=== PATIENT | female | born 1975 | race Caucasian/White ===

== ENCOUNTER → 2016-07-11 | Outpatient (CLI) | payer BC ==
[~2016-07-11] MED LIST: BCPILLS PO
--- NOTE | 2016-07-11 08:44 | DIAGNOSTIC IMAGING REPORT ---
ULTRASOUND OF THE PELVIS CLINICAL HISTORY: Heavy and irregular menses. COMPARISON STUDY: Pelvic ultrasound dated 02/26/2010. TECHNIQUE: Real-time, grayscale, and color flow sonography of the pelvis is performed both transabdominally and endovaginally. Images are reviewed in the transverse and longitudinal planes. FINDINGS: Uterus: The retroverted uterus is normal in size and echotexture, measuring 8.4 x 5.0 x 5.7 cm. Small nabothian cysts are incidentally noted in the cervix. Endometrium: There is fluid and nonvascular echogenic debris present within the endometrial canal. The endometrial stripe measures up to 3 mm Ovaries: The ovaries are normal in size and morphology. The right ovary measures 1.8 x 1.2 x 1.4 cm and the left ovary measures 1.6 x 1.1 x 1.7 cm. There are tiny ovarian follicles. Normal Doppler waveforms are shown within both ovaries. Pelvis: There is no free fluid in the cul-de-sac. No concerning adnexal lesion is seen. IMPRESSION: 1. No acute sonographic abnormality is identified in the pelvis. 2. There is fluid and complex nonvascular debris present within the endometrial canal. This nonspecific and may represent blood clots. Gynecologic assessment is recommended. A follow-up pelvic ultrasound in 3 months time is also recommended to document resolution. 3. The ovaries are normal in appearance. Electronically signed by: Jv Haley M.D. 07/11/2016 8:41 AM Dictated Date/Time: 07/11/2016 8:34 AM
== END | disposition home or self-care (01) ==
LOC: C.ULTR 07:51
PROVIDERS: ATTEND Family Medicine
DX: N92.0 Excessive and frequent menstruation with regular cycle (principal)

== ENCOUNTER → 2016-08-14 | Outpatient (CLI) | payer BC | END | disposition home or self-care (01) | LOC: C.PAPS 11:01 | PROVIDERS: ATTEND Physician Assistant | DX: Z01.419 Encounter for gynecological examination (general) (routine) without abnormal findings (principal) ==

== ENCOUNTER → 2017-06-23 | Outpatient (CLI) | payer OTHER ==
--- NOTE | 2017-06-23 09:51 | DIAGNOSTIC IMAGING REPORT ---
RIGHT ANKLE 3 VIEWS CLINICAL HISTORY: Right ankle pain. No reported history of trauma. FINDINGS: 3 views the right ankle are obtained. No prior studies are available for comparison at the time of dictation. The skeletal structures are well mineralized. No fracture is seen. The ankle mortise is intact. Pes planus is suggested. No joint effusion is identified. Mild soft tissue swelling is noted over the medial malleolus. IMPRESSION: Mild soft tissue swelling with no acute osseous abnormality identified. Electronically signed by: Jv Haley M.D. 06/23/2017 9:50 AM Dictated Date/Time: 06/23/2017 9:49 AM
== END | disposition home or self-care (01) ==
LOC: C.RAD1850 09:41
PROVIDERS: ATTEND Student in an Organized Health Care Education/Training Program
DX: M25.571 Pain in right ankle and joints of right foot (principal)

== ENCOUNTER 2020-06-25 04:11 | Observation (INO) ==
--- NOTE | 2020-06-25 04:18 | Emergency Department Note ---
History of Present Illness General Chief complaint: Ankle Pain Stated complaint: FALL HURT LEFT ANKLE Time Seen by Provider: 06/25/20 04:17 History of Present Illness Maximum Pain Intensity: 6 This is a 45-year-old female that presents to the emergency department via private vehicle with complaints of "fall, her left ankle". The patient notes that she had some drinks last night and states that she does not recall the events well but notes that she was in the bathroom, and fell on a dog toy causing injury to the left ankle. She denies striking the head or loss of consciousness. She notes isolated pain to that of the left lower extremity. This occurred around 9:30 PM this past evening. Current pain 08/30. Home Medications Medication Instructions Recorded Confirmed Type escitalopram oxalate 10 mg PO QAM 06/25/20 06/25/20 History lisinopril 10 mg PO QAM 06/25/20 06/25/20 History Allergies Allergy/AdvReac Type Severity Reaction Status Date / Time Sulfa (Sulfonamide Allergy Unknown HIVES Unverified 06/25/20 07:07 Antibiotics) Past Med/Surg History Medical History No pertinent past medical history Surgical History No pertinent past surgical history Social History Smoking Status: Never smoker Preferred Language: Belarusian Feels Safe at Home: Yes Review of Systems A total of 6 systems reviewed and were otherwise negative Physical Exam Vital Signs Vital Signs - 24 hr 06/25/20 04:15 06/25/20 05:25 06/25/20 07:25 Temperature 36.1 C L Temperature Source Temporal Artery Scan Pulse Rate 104 H Pulse Rate [Finger] 78 82 Respiratory Rate 16 16 18 Respiratory Depth Normal Blood Pressure 122/54 L Blood Pressure [Right Arm] 101/66 110/74 Blood Pressure Mean 76 Blood Pressure Mean [Right Arm] 77 86 Blood Pressure Position [Right Arm] Semi-fowlers Pulse Oximetry 98 98 95 Oxygen Delivery Method Room Air Room Air Sepsis Recent Fever Within 48 Hours No Sepsis New/Unexplained Change in Mental Status No Sepsis Action Taken by Nursing No Action Required VITAL SIGNS - Vital signs and nursing notes were reviewed. Stable and afebrile. GENERAL -45-year-old female appearing her stated age who is in no acute distress. Communicates well with provider and answers questions appropriately. SKIN - Without rashes. There is edema and bruising to the left ankle. There is no obvious deformity or evidence of open fracture. No meningeal or petechial rash. HEAD - NC/AT. EXTREMITIES - No clubbing or peripheral cyanosis. +5/5 strength noted in UE/LE bilaterally. There is left lower extremity tenderness to palpation in the left ankle region. No evidence of open fracture. Left dorsalis pedis pulse below normal limits. Decreased left ankle range of motion secondary to pain. Patient cannot bear weight. NEUROLOGIC - Cranial nerves II through XII grossly intact. Sensory intact to light touch throughout. PSYCH - A&O, and cooperates fully with examiner. Pt is very pleasant and interacts well with examiner. Course Administered Medications Discontinued Medications Hydrocodone Bitart/Acetaminophen (Hydrocodone/Acetamophen 5/325mg Tab) 1 tab PO NOW STA Stop: 06/25/20 04:25 Last Admin: 06/25/20 04:38 Dose: 1 tab Documented by: [id number] Medical Decision Making Laboratory Data Result diagrams: 06/25/20 07:14 06/25/20 07:14 Lab Results 06/25/20 06/25/20 06/25/20 Range/Units 07:14 07:14 07:18 WBC 8.97 (4.8-10.8) K/uL RBC 3.69 L (4.2-5.4) M/uL Hgb 12.8 (12.0-16.0) g/dL Hct 37.1 (37-47) % MCV 100.5 H (80-100) fL MCH 34.7 H (25-34) pg MCHC 34.5 (32-36) g/dL RDW Std Deviation 51.7 H (36.4-46.3) fL RDW Coeff of Brian 14.1 (11.5-14.5) % Plt Count 262 (130-400) K/uL MPV 9.7 (7.4-10.4) fL Immature Gran % (Auto) 0.1 % Neut % (Auto) 78.7 % Lymph % (Auto) 16.6 % Mower % (Auto) 4.2 % Eos % (Auto) 0.1 % Baso % (Auto) 0.3 % Neut # (Auto) 7.05 H (1.4-6.5) K/uL Lymph # (Auto) 1.49 (1.2-3.4) K/uL Mower # (Auto) 0.38 (0.11-0.59) K/uL Eos # (Auto) 0.01 (0-0.5) K/uL Baso # (Auto) 0.03 (0-0.2) K/uL Immature Gran # (Auto) 0.01 (0.00-0.02) K/uL Sodium 137 (136-145) mmol/L Potassium 3.9 (3.5-5.1) mmol/L Chloride 105 (98-107) mmol/L Carbon Dioxide 23 (21-32) mmol/L Anion Gap 9.0 (3-11) BUN 21 H (7-18) mg/dl Creatinine 0.97 (0.6-1.2) mg/dl Est Cr Clr Drug Dosing Not Reportable Est GFR ( Amer) 81.2 Est GFR (Non-Af Amer) 70.0 BUN/Creatinine Ratio 21.2 H (10-20) Glucose 105 H (70-99) mg/dl Calcium 8.5 (8.5-10.1) mg/dl Total Bilirubin 0.2 (0.2-1) mg/dl AST 25 (15-37) U/L ALT 28 (12-78) U/L Alkaline Phosphatase 65 (45-117) U/L Total Protein 7.3 (6.4-8.2) gm/dl Albumin 3.4 (3.4-5.0) gm/dl Globulin 3.9 (2.5-4.0) gm/dl Albumin/Globulin Ratio 0.9 (0.9-2) COVID-19 Eval Order CovFluRsv at [facility] SARS-CoV-2 (PCR) (Negative) Influenza Type A (PCR) (Neg) Influenza Type B (PCR) (Neg) RSV (RT-PCR) (Neg) 06/25/20 Range/Units 07:18 WBC (4.8-10.8) K/uL RBC (4.2-5.4) M/uL Hgb (12.0-16.0) g/dL Hct (37-47) % MCV (80-100) fL MCH (25-34) pg MCHC (32-36) g/dL RDW Std Deviation (36.4-46.3) fL RDW Coeff of Brian (11.5-14.5) % Plt Count (130-400) K/uL MPV (7.4-10.4) fL Immature Gran % (Auto) % Neut % (Auto) % Lymph % (Auto) % Mower % (Auto) % Eos % (Auto) % Baso % (Auto) % Neut # (Auto) (1.4-6.5) K/uL Lymph # (Auto) (1.2-3.4) K/uL Mower # (Auto) (0.11-0.59) K/uL Eos # (Auto) (0-0.5) K/uL Baso # (Auto) (0-0.2) K/uL Immature Gran # (Auto) (0.00-0.02) K/uL Sodium (136-145) mmol/L Potassium (3.5-5.1) mmol/L Chloride (98-107) mmol/L Carbon Dioxide (21-32) mmol/L Anion Gap (3-11) BUN (7-18) mg/dl Creatinine (0.6-1.2) mg/dl Est Cr Clr Drug Dosing Est GFR ( Amer) Est GFR (Non-Af Amer) BUN/Creatinine Ratio (10-20) Glucose (70-99) mg/dl Calcium (8.5-10.1) mg/dl Total Bilirubin (0.2-1) mg/dl AST (15-37) U/L ALT (12-78) U/L Alkaline Phosphatase (45-117) U/L Total Protein (6.4-8.2) gm/dl Albumin (3.4-5.0) gm/dl Globulin (2.5-4.0) gm/dl Albumin/Globulin Ratio (0.9-2) COVID-19 Eval Order SARS-CoV-2 (PCR) NEGATIVE (Negative) Influenza Type A (PCR) Negative (Neg) Influenza Type B (PCR) Negative (Neg) RSV (RT-PCR) Negative (Neg) Imaging Data Radiologist's Impression: Ankle X-Ray 06/25/20 04:24 XR ankle LT min 3V routine, XR tibia fibula LT 2V, XR foot LT min 3V routine HISTORY: 45 years-old Female Fall, L ankle and foot pain acute left foot, ankle and lower leg pain status post trauma COMPARISON: None TECHNIQUE: 3 views of the left foot, 3 views of the left ankle and 2 views of t he left tibia and fibula FINDINGS: ANKLE: There is an acute fracture of the posterior malleolus of the distal tibia demonstrating 2 mm cortical depression and 3 mm posterior displacement. Cortical irregularity of the medial malleolus is suggestive of acute fracture.r there is an acute comminuted fracture of the distal fibula which extends from the distal diaphysis to the level of the talar dome into the distal tibia fibular syndesm osis. Abnormal widening of the medial clear space with slight anterior subluxation of the distal tibia in relation to the talus. There is widening of the distal syndesmosis measuring 5 mm. The distal fibular fracture is displaced laterally 5 mm and posteriorly 3 mm. Moderate circumferential soft tissue swelling. TIBIA/FIBULA: Distal tibia and fibular fractures as above. No additional acute fracture or dislocation. FOOT: Bipartite medial hallux sesamoid. No acute fracture or dislocation. IMPRESSION: 1. Acute trimalleolar fracture of the ankle as above with mild displacement of t he distal fibular fracture. 2. Findings compatible with associated ligamentous injury with abnormal widening of the distal tibiofibular syndesmosis, mild widening of the medial clear space with subluxation of the distal tibia in relation to the talus. ACT 112: Negative or not required by law. The above report was generated using voice recognition software. It may contain grammatical, syntax or spelling errors. Electronically signed by: Gerardo Contreras M.D. 06/25/2020 6:36 AM Foot X-Ray 06/25/20 04:24 XR ankle LT min 3V routine, XR tibia fibula LT 2V, XR foot LT min 3V routine HISTORY: 45 years-old Female Fall, L ankle and foot pain acute left foot, ankle and lower leg pain status post trauma COMPARISON: None TECHNIQUE: 3 views of the left foot, 3 views of the left ankle and 2 views of the left tibia and fibula FINDINGS: ANKLE: There is an acute fracture of the posterior malleolus of the distal tibia demonstrating 2 mm cortical depression and 3 mm posterior displacement. Cortical irregularity of the medial malleolus is suggestive of acute fracture.r there is an acute comminuted fracture of the distal fibula which extends from the distal diaphysis to the level of the talar dome into the distal tibia fibular syndesmosis. Abnormal widening of the medial clear space with slight anterior subluxation of the distal tibia in relation to the talus. There is widening of the distal syndesmosis measuring 5 mm. The distal fibular fracture is displaced laterally 5 mm and posteriorly 3 mm. Moderate circumferential soft tissue swelling. TIBIA/FIBULA: Distal tibia and fibular fractures as above. No additional acute fracture or dislocation. FOOT: Bipartite medial hallux sesamoid. No acute fracture or dislocation. IMPRESSION: 1. Acute trimalleolar fracture of the ankle as above with mild displacement of the distal fibular fracture. 2. Findings compatible with associated ligamentous injury with abnormal widening of the distal tibiofibular syndesmosis, mild widening of the medial clear space with subluxation of the distal tibia in relation to the talus. ACT 112: Negative or not required by law. The above report was generated using voice recognition software. It may contain grammatical, syntax or spelling errors. Electronically signed by: Gerardo Contreras M.D. 06/25/2020 6:36 AM Tibia/Fibula X-Ray 06/25/20 04:54 XR ankle LT min 3V routine, XR tibia fibula LT 2V, XR foot LT min 3V routine HISTORY: 45 years-old Female Fall, L ankle and foot pain acute left foot, ankle and lower leg pain status post trauma COMPARISON: None TECHNIQUE: 3 views of the left foot, 3 views of the left ankle and 2 views of the left tibia and fibula FINDINGS: ANKLE: There is an acute fracture of the posterior malleolus of the distal tibia demonstrating 2 mm cortical depression and 3 mm posterior displacement. Cortical irregularity of the medial malleolus is suggestive of acute fracture.r there is an acute comminuted fracture of the distal fibula which extends from the distal diaphysis to the level of the talar dome into the distal tibia fibular syndesmosis. Abnormal widening of the medial clear space with slight anterior subluxation of the distal tibia in relation to the talus. There is widening of the distal syndesmosis measuring 5 mm. The distal fibular fracture is displaced laterally 5 mm and posteriorly 3 mm. Moderate circumferential soft tissue swelling. TIBIA/FIBULA: Distal tibia and fibular fractures as above. No additional acute fracture or dislocation. FOOT: Bipartite medial hallux sesamoid. No acute fracture or dislocation. IMPRESSION: 1. Acute trimalleolar fracture of the ankle as above with mild displacement of the distal fibular fracture. 2. Findings compatible with associated ligamentous injury with abnormal widening of the distal tibiofibular syndesmosis, mild widening of the medial clear space with subluxation of the distal tibia in relation to the talus. ACT 112: Negative or not required by law. The above report was generated using voice recognition software. It may contain grammatical, syntax or spelling errors. Electronically signed by: Gerardo Contreras M.D. 06/25/2020 6:36 AM MDM Narrative Patient was seen and evaluated as above in room A3. Review was performed of nursing notes and vital signs. Patient denies any pertinent past medical history, surgeries. After obtaining a thorough history and physical examination the above work up was performed. Patient presents to us today status post mechanical fall with isolated left lower extremity pain. On examination there is tenderness throughout the left ankle joint with edema. No evidence of open fracture. She is neurovascularly intact. Options of care were discussed with the patient. Ice packs were applied to the area. We discussed options of pain management and collectively agreed upon a tablet of [place]. She was reevaluated with improvement. X-ray was obtained of the left lower extremity. There is a trimalleolar fracture. I discussed this with the on-call orthopedic surgeon, Dr. Melendrez. He came to see the patient. Patient will be admitted with surgical intervention later today. Patient happy plan of care. I reassessed the patient multiple times and offered her pain medications beyond what she had here initially and she respectfully declined. Given that she will be taken to the operative suite later today I did obtain baseline labs as well as a Covid test. There is no leukocytosis or anemia. No emergent metabolic disturbance. Covid testing negative. Serum hCG ordered and is pending. Please refer to further documentation regarding her stay. Patient happy with plan of care. In the evaluation and treatment of this patient, the following differential diagnoses were considered: Ankle Fracture, Ankle Sprain, Distal Fibula Fracture, Distal Tibia Fracture, Foot Fracture, [place] Fracture. Impression & Plan Trimalleolar fracture of left ankle Discharge Plan Visit Data Chief Complaint: Ankle Pain Stated Complaint: FALL HURT LEFT ANKLE ED Provider: Talia Wilkinson ED Midlevel Provider: Jeff Mandujano Discharge Problem: Trimalleolar fracture of left ankle Patient Disposition: Admitted As Inpatient Condition: Good Forms Stand Alone Forms: [facility] Prescriptions Prescriptions: No Action lisinopril 10 mg tablet 10 mg PO QAM RF: 0 escitalopram oxalate 10 mg tablet 10 mg PO QAM RF: 0 Referrals Referrals: Ave Pérez MD [Primary Care Provider] -
[2020-06-25] MEDS ORDERED: HYDROCODONE/ACETAMOPHEN 5/325MG TAB PO STA (04:24)
[2020-06-25] MEDS ORDERED: ceFAZolin 2000MG 2,000 MG/15 ML SYR IV SCH ×2 (06:00→22:00)
--- NOTE | 2020-06-25 06:37 | XRay Report ---
XR ankle LT min 3V routine, XR tibia fibula LT 2V, XR foot LT min 3V routine HISTORY: 45 years-old Female Fall, L ankle and foot pain acute left foot, ankle and lower leg pain s tatus post trauma COMPARISON: None TECHNIQUE: 3 views of the left foot, 3 views of the left ankle and 2 views of the left tibia and fibu la FINDINGS: ANKLE: There is an acute fracture of the posterior malleolus of the distal tibia demonstrating 2 mm cortical depression and 3 mm posterior displacement. Cortical irregularity of the medial malleolus is suggest jose of acute fracture.r there is an acute comminuted fracture of the distal fibula which extends from the distal diaphysis to the level of the talar dome into the distal tibia fibular syndesmosis. Abnor mal widening of the medial clear space with slight anterior subluxation of the distal tibia in relati on to the talus. There is widening of the distal syndesmosis measuring 5 mm. The distal fibular fract ure is displaced laterally 5 mm and posteriorly 3 mm. Moderate circumferential soft tissue swelling. TIBIA/FIBULA: Distal tibia and fibular fractures as above. No additional acute fracture or dislocation. FOOT: Bipartite medial hallux sesamoid. No acute fracture or dislocation. IMPRESSION: 1. Acute trimalleolar fracture of the ankle as above with mild displacement of the distal fibular fra cture. 2. Findings compatible with associated ligamentous injury with abnormal widening of the distal tibiof ibular syndesmosis, mild widening of the medial clear space with subluxation of the distal tibia in r elation to the talus. ACT 112: Negative or not required by law. The above report was generated using voice recognition software. It may contain grammatical, syntax o r spelling errors. Electronically signed by: Gerardo Contreras M.D. 06/25/2020 6:36 AM
--- NOTE | 2020-06-25 06:57 | History & Physical Report ---
Date of Service June 25, 2020 Assessment & Plan (1) Trimalleolar fracture of left ankle: This is a fracture pattern that usually does best with surgical fixation. I discussed this with her at length at bedside. I do recommend open reduction internal fixation of the left ankle. She understands the risk, benefits, and alternatives of procedure is elected to proceed. Questions were answered at bedside. She will remain n.p.o. The decision was made for surgery. I will admit her to my service for now and likely discharge her to home after the operation. History of Present Illness Chief Complaint: Left trimalleolar ankle fracture. Primary Care Provider: Ave Pérez MD Ofelia is a pleasant 45-year-old female who was drinking last night. She fell awkwardly and injured her left ankle. She came to the emergency room. Radiographs demonstrated a trimalleolar equivalent left ankle fracture. There is some displacement of the tibiotalar joint. Orthopedics was consulted to evaluate and treat. She denies any head traumas or any other injuries. Allergies Allergy/AdvReac Type Severity Reaction Status Date / Time Sulfa (Sulfonamide Allergy Unknown HIVES Unverified 03/16/10 13:42 Antibiotics) Home Medications Medication Instructions Recorded Confirmed Type Control Pills 1 tab PO DAILY #0 03/16/10 History Past Med/Surg History Social History Smoking Status: Never smoker Preferred Language: Romanian Feels Safe at Home: Yes Review of Systems All systems reviewed & are unremarkable except as noted in HPI & below. Physical Exam On physical examination of left ankle, there is a little bit of swelling. She has tenderness palpation over the distal fibula. She has active motion of all of her toes. There are no abrasions, lesions, or lacerations of the skin.. Constitutional WD/WN, vitals as above Eyes PERRL, conjunctivae normal, anicteric sclerae ENMT external ear and nose normal, oropharynx normal Neck trachea midline, no thyromegaly Respiratory normal respiratory effort Cardiovascular RRR, no murmur, no edema Gastrointestinal (Abdomen) normal bowel sounds, soft, nontender, no hepatosplenomegaly Psychiatric A+Ox3, euthymic affect Results & Data Results & Data Laboratory Results . Diagnostic Findings X-rays of the left ankle show a trimalleolar equivalent left ankle fracture. There is a displaced spiral fracture of the distal fibula. There is a fracture of 15% of the posterior malleolus. Is difficult to determine whether the medial malleolus is intact or not but there is some medial clear space widening.. PG Care Time/CCT Total # of Minutes Spent Total Time Spent with Patient: Total time spent is greater than 50% in coordination of care (as documented) at patient's floor/unit and/or counseling patient: Coding Level of Care Code 06684 Initial Inpt Care Lvl 2 (57 - DECISION FOR SURGERY) Diagnoses Trimalleolar fracture of left ankle S82.852A
[2020-06-25 07:23] LABS: Basophils # (auto) 0.03 K/uL (0-0.2); Basophils % (auto) 0.3 %; Eosinophils # (auto) 0.01 K/uL (0-0.5); Eosinophils % (auto) 0.1 %; Hematocrit (blood only) 37.1 % (37-47); Hemoglobin 12.8 g/dL (12.0-16.0); Immature Granulocytes # (auto) 0.01 K/uL (0.00-0.02); Immature Granulocytes % (auto) 0.1 %; Lymphocytes # (auto) 1.49 K/uL (1.2-3.4); Lymphocytes % (auto) 16.6 %; Mean Corpuscular Hemoglobin 34.7 pg (25-34); Mean Corpuscular Hgb Conc 34.5 g/dL (32-36); Mean Corpuscular Volume 100.5 fL (80-100); Mean Platelet Volume 9.7 fL (7.4-10.4); Monocytes # (auto) 0.38 K/uL (0.11-0.59); Monocytes % (auto) 4.2 %; Neutrophils # (auto) 7.05 K/uL (1.4-6.5); Neutrophils % (auto) 78.7 %; Platelet Count 262 K/uL (130-400); RDW Coefficient of Variation 14.1 % (11.5-14.5); RDW Standard Deviation 51.7 fL (36.4-46.3); Red Blood Count 3.69 M/uL (4.2-5.4); White Blood Count 8.97 K/uL (4.8-10.8)
[2020-06-25 07:40] LABS: Alanine Aminotransferase 28 U/L (12-78); Albumin Level 3.4 gm/dl (3.4-5.0); Aspartate Aminotransferase 25 U/L (15-37); BUN Creatinine Ratio 21.2 (10-20); Blood Urea Nitrogen 21 mg/dl (7-18); Calcium 8.5 mg/dl (8.5-10.1); Carbon Dioxide 23 mmol/L (21-32); Chloride 105 mmol/L (98-107); Est GFR (African American) 81.2; Glucose 105 mg/dl (70-99); Potassium 3.9 mmol/L (3.5-5.1); Sodium 137 mmol/L (136-145)
[2020-06-25 07:43] LABS: Albumin Globulin Ratio 0.9 (0.9-2); Alkaline Phosphatase 65 U/L (45-117); Bilirubin,Total 0.2 mg/dl (0.2-1); Globulin 3.9 gm/dl (2.5-4.0); Total Protein 7.3 gm/dl (6.4-8.2)
[2020-06-25 08:02] LABS: Influenza A virus by PCR Negative (Neg); Influenza B virus by PCR Negative (Neg); RSV by PCR Negative (Neg); SARS CoV2 RNA(COVID-19) InHosp NEGATIVE (Negative)
[2020-06-25 08:41] LABS: Pregnancy Test, Serum Negative (Negative)
[2020-06-25] MEDS ORDERED: HYDROmorphone INJ 1 MG/ML SYRINGE IV PRN (09:11)
[2020-06-25] MEDS ORDERED: ONDANSETRON INJ 2 MG/ML 2 ML VIAL IV PRN ×3 (09:11→15:53)
[2020-06-25] MEDS ORDERED: D5W AND 1/2NSS 1,000 ML IV SCH (09:11)
[2020-06-25] MEDS ORDERED: fentaNYL citrate 100 MCG/2 ML VIAL ONE ×2 (12:27→13:52)
[2020-06-25] MEDS ORDERED: PROPOFOL IV EMULSION 10 MG/ML 20 ML VIAL IV ONE ×2 (12:27→14:45)
[2020-06-25] MEDS ORDERED: MIDAZOLAM HCL 1 MG/ML 2ML VIAL ONE ×2 (12:27)
[2020-06-25] MEDS ORDERED: ONDANSETRON INJ 2 MG/ML 2 ML VIAL ONE (12:27)
[2020-06-25] MEDS ORDERED: LIDOCAINE HCL 2% 2 ML VIAL/AMP(20MG/ML) INFIL ONE (12:27)
[2020-06-25] MEDS ORDERED: DEXAMETHASONE SOD INJ 4 MG/ML VIAL ONE ×2 (12:27→13:21)
[2020-06-25] MEDS ORDERED: ATROPINE SULFATE 0.1 MG/ML 10ML SYR IV PRN (13:21)
[2020-06-25] MEDS ORDERED: EPINEPHrine INJ 1 MG/ML AMP ONE (13:21)
[2020-06-25] MEDS ORDERED: fentaNYL citrate 100 MCG/2 ML VIAL IV PRN (13:21)
[2020-06-25] MEDS ORDERED: ePHEDrine sulfate 50 MG/ML AMP IV PRN (13:21)
[2020-06-25] MEDS ORDERED: ROPIVACAINE 0.5% 5 MG/ML 30 ML VIAL ONE (13:21)
--- NOTE | 2020-06-25 14:25 | Electrocardiogram Report ---
Test Reason : Blood Pressure : / mmHG Vent. Rate : 082 BPM Atrial Rate : 082 BPM P-R Int : 156 ms QRS Dur : 114 ms QT Int : 398 ms P-R-T Axes : 017 -20 -02 degrees QTc Int : 464 ms Normal sinus rhythm Minimal voltage criteria for LVH, may be normal variant Borderline ECG No previous ECGs available Confirmed by Marvin Bar ([id number]) on 06/25/2020 2:25:21 PM Referred By: REFERRED SELF Confirmed By:Marvin Bar
--- NOTE | 2020-06-25 14:42 | Operative Report ---
PG Post Operative Report Pre & Post Diagnosis Operation Date: 06/25/20 07:00 Pre-Op Diagnosis: Left trimalleolar equivalent ankle fracture Post-Op Diagnosis: Left trimalleolar equivalent ankle fracture I identified the patient and participated in the time-out.: Yes Procedure Operation Date: 06/25/20 07:00 Actual Procedures p Left Ankle Open Reduction Internal Fixation(Left) - Ronn Melendrez DO Surgeon Ronn Melendrez DO Licensed Psychologist Manager Ronn Dowd PAC Estimated Blood Loss 5 Findings Consistent with Post-Op Diagnosis Specimens None Complications none Disposition Disposition: Recovery Room Indications Ofelia is a 45-year-old female who was drinking last evening. She twisted her ankle and fell. She came to the emergency room and radiographs demonstrated a trimalleolar equivalent left ankle fracture. We admitted her to the hospital for operative fixation the same day. Description of Procedure On June 25, 2020 Ofelia was brought down from her hospital room to the preoperative holding area. The operative extremity identified and signed. She was then given a preoperative antibiotic and a left leg regional block. She was then taken back to the operating room and laid on the table in supine position. She was put under general anesthesia. The left ankle was then prepped and draped in sterile fashion. A timeout was done. The patient and the operative extremity was properly identified. A longitudinal incision was made over the distal fibula. Dissection was taken down through the fascia with care not to disrupt the intermediate branch of the peroneal nerve. The fracture was easily identified. The wound was irrigated. It was a spiral fracture with a butterfly fragment. The fracture was reduced with reduction clamps. Fluoroscopic images then showed anatomic reduction of the fracture. A Synthes distal fibular locking plate was then placed. A compression screw was placed proximally and a locking screw was placed distally. Fluoroscopic images showed anatomic alignment of the fracture and good placement of the plate. Locking screws were then placed distally and proximally. Screw lengths were checked under fluoroscopy. After all the screws were placed, the screws were tightened. Final fluoroscopic images showed anatomic alignment and a well-maintained ankle mortise. Stress view x-rays showed no widening of the syndesmosis. Lateral x-rays showed near anatomic redu ction of the posterior malleolus fragment. The wound was irrigated. The deep layer was closed with 2-0 Vicryl suture. Skin was closed with 3-0 Vicryl and loreto. She was then placed in a trauma splint. She was then extubated and transferred to a [facility]. She was taken to the post anesthesia care unit in stable condition. She tolerated the procedure well. Ronn Dowd PA-C, was present for the entire procedure. He was critical for patient positioning, prepping, draping, retraction exposure, wound closure and application of sterile dressing. I attest to the content of the Intraoperative Record and any orders documented therein. Any exceptions are noted below.
--- NOTE | 2020-06-25 14:45 | Fluoroscopy Report ---
INTRAOPERATIVE RADIOGRAPHS CLINICAL HISTORY: Open reduction and internal fixation of the left ankle. Fluoroscopy time: 63 seconds. FINDINGS: 2 spot fluoroscopic views of the left ankle are correlated with radiographs dated 06/25/2020. There has been buttress plate fixation of a distal fibular fracture with presybeterian of near-anatomi c alignment. The orthopedic hardware appears intact. Numerous cortical lag screws transfix the buttre ss plate. A posterior malleolar fracture is again seen in the distal tibia. Overlying soft tissue cristofer ma is noted. IMPRESSION: Intraoperative radiographs from open reduction and internal fixation of the distal left f ibula as above. Electronically signed by: Jv Haley M.D. 06/25/2020 2:43 PM
--- NOTE | 2020-06-25 14:45 | Fluoroscopy Report ---
INTRAOPERATIVE RADIOGRAPHS CLINICAL HISTORY: Open reduction and internal fixation of the left ankle. Fluoroscopy time: 63 seconds. FINDINGS: 2 spot fluoroscopic views of the left ankle are correlated with radiographs dated 06/25/2020. There has been buttress plate fixation of a distal fibular fracture with caodaism of near-anatomi c alignment. The orthopedic hardware appears intact. Numerous cortical lag screws transfix the buttre ss plate. A posterior malleolar fracture is again seen in the distal tibia. Overlying soft tissue cristofer ma is noted. IMPRESSION: Intraoperative radiographs from open reduction and internal fixation of the distal left f ibula as above. Electronically signed by: Jv Haley M.D. 06/25/2020 2:43 PM
--- NOTE | 2020-06-25 15:09 | Anesthesiology Consultation ---
Date of Service June 25, 2020 Assessment & Plan (1) Encounter for pre-operative examination: Chart Review Chart Review: Acceptable Risk for Surgery and Patient NOT seen in Pre Admission Testing Consults Requested none ASA ASA2 Proposed Anesthesia Anesthesia Type: General Regional Regional Laterality: Left Site: Popliteal and Adductor Canal Risk / Benefits Reviewed With: PT / POA / Parent / Guardian, Accepts Plan and Informed Consent Obtained History Surgery Operation Date: 06/25/20 07:00 Proposed Procedures p Left Ankle Open Reduction Internal Fixation - Ronn Melendrez, Height/Weight Height: 5 ft 2 in Weight: 95.45 kg Allergies Allergy/AdvReac Type Severity Reaction Status Date / Time Sulfa (Sulfonamide Allergy Unknown HIVES Unverified 06/25/20 07:07 Antibiotics) Medications Home Medications Medication Instructions Recorded Confirmed Last Taken escitalopram oxalate 10 mg PO QAM 06/25/20 06/25/20 06/24/20 ketorolac 10 mg PO Q8H 5 Days #15 tab 06/25/20 Unknown lisinopril 10 mg PO QAM 06/25/20 06/25/20 06/24/20 oxycodone-acetaminophen [Percocet] 1 tab PO Q6H PRN #20 tab 06/25/20 Unknown Active Medications Generic Name Dose Route Start Last Admin Trade Name Freq PRN Reason Stop Dose Admin Hydromorphone HCl 1 mg 06/25/20 09:11 06/25/20 09:17 Hydromorphone Inj 1 Mg/Ml Syringe IV 07/09/20 09:10 1 mg Q1H PRN Administration Pain Dextrose/Sodium Chloride 1,000 mls @ 80 mls/hr 06/25/20 09:11 06/25/20 09:17 D5w And 1/2nss IV 07/25/20 09:10 80 mls/hr .[id number] GUANAKITO Administration Cefazolin Sodium 2,000 mg in 15 mls @ 3.75 mls/min 06/25/20 06:00 06/25/20 13:42 Ancef 2000mg IV 06/26/20 05:59 3.75 mls/min PREOP GUANAKITO Administration Protocol NPO Date Last Intake of Fluids: 06/24/20 Time Last Intake of Fluids: 21:00 Date Last Intake of Solids: 06/24/20 Time Last Intake of Solids: 20:00 Past Medical History Medical History No pertinent past medical history Exercise / Class Metabolic Activity II 4-5 Yardwork/Stairs/Walk up hill Past Surgical History Surgical History No pertinent past surgical history Past Anesthesia History No Hx of Anesthesia Complications and No Family Hx of Anesthesia Complications History of PONV No Hx of PONV and No Hx of Motion Sickness Social History Smoking Status: Never smoker Hx Alcohol Use: Yes Alcohol type: wine and hard liquor alcohol intake frequency: 3 or more drinks per day substance use type: marijuana Last Used Substance: Hours (ago) Last Used Substance Other:: last use 1700 yesterday Physical Exam Vital Signs Last Vital Signs Temp 36.6 C 06/25/20 15:01 Pulse 88 06/25/20 15:01 Resp 16 06/25/20 15:01 BP 121/80 06/25/20 15:01 Pulse Ox 98 06/25/20 15:01 ENMT Mouth: no dentition abnormality Thyromental Distance: > or= 3.5 Finger Breadths Mallampati Class: II Neck normal visual inspection Respiratory normal respiratory effort Auscultation: lungs clear to auscultation bilaterally Cardiovascular Rate/Rhythm: regular rate and regular rhythm Psychiatric Orientation: alert Testing Laboratory Results 06/25/20 07:14 06/25/20 07:14
--- NOTE | 2020-06-25 15:36 | Anesthesiology Progress Note ---
Date of Service June 25, 2020 Anesthesia Post Procedure Vital Signs Vital Signs: Temp Pulse Pulse Pulse Resp BP BP 06/25/20 15:30 97.9 F 84 16 138/88 06/25/20 15:20 79 16 135/78 06/25/20 15:10 80 16 130/73 06/25/20 15:01 97.9 F 88 16 121/80 06/25/20 12:26 97.9 F 98 H 18 154/94 H 06/25/20 09:20 98.4 F 93 H 16 119/78 06/25/20 07:25 82 18 110/74 06/25/20 05:25 78 16 101/66 06/25/20 04:15 97.0 F L 104 H 16 122/54 L Pulse Ox 06/25/20 15:30 95 06/25/20 15:20 98 06/25/20 15:10 99 06/25/20 15:01 98 06/25/20 12:26 99 06/25/20 09:20 94 06/25/20 07:25 95 06/25/20 05:25 98 06/25/20 04:15 98 Pain Intensity Left Ankle: Pain Intensity: 7 Transfer of Care Handoff Completed per policy Notes Mental Status: alert / awake / arousable and participated in evaluation Patient Amnestic to Procedure: Yes Nausea / Vomiting: adequately controlled Pain: adequately controlled Airway Patency, RR, SpO2: stable & adequate BP & HR: stable & adequate Hydration State: stable & adequate Anesthetic Complications: no major complications apparent and Pt Satisfied with anesthetic care
[2020-06-25] MEDS ORDERED: ACETAMINOPHEN 325 MG TAB PO PRN (15:53)
[2020-06-25] MEDS ORDERED: oxyCODONE/ACETAMINOPHEN 5mg/325mg TAB PO PRN (15:53)
[2020-06-26] MEDS ORDERED: lisinopril 10 MG TAB PO SCH (09:00)
[2020-06-26] MEDS ORDERED: ESCITALOPRAM OXALATE 10 MG TAB PO SCH (09:00)
--- NOTE | 2020-07-02 16:15 | Discharge Summary ---
Date of Service July 02, 2020 Admission HPI (Per Admitting) Ofelia is a pleasant 45-year-old female who was drinking last night. She fell awkwardly and injured her left ankle. She came to the emergency room. Radiographs demonstrated a trimalleolar equivalent left ankle fracture. There is some displacement of the tibiotalar joint. Orthopedics was consulted to evaluate and treat. She denies any head traumas or any other injuries. Admission Exam (Per Admitting) On physical examination of left ankle, there is a little bit of swelling. She has tenderness palpation over the distal fibula. She has active motion of all of her toes. There are no abrasions, lesions, or lacerations of the skin.. Principal Diagnosis Same as "Discharge Diagnosis" noted below under Discharge Instructions. Discharge Data Procedures Performed Operation Date: 06/25/20 07:00 Actual Procedures p Left Ankle Open Reduction Internal Fixation(Left) - Ronn Melendrez DO Ordered Studies 06/25/20 FL ankle LT 2V Routine FL fluoroscopy <1hr Routine 06/25/20 13:22 US - OR guided needle placemen Routine Hospital Course (1) Trimalleolar fracture of left ankle: On June 25, 2020 Ofelia sustained a trimalleolar left ankle fracture. She went to the emergency room and was evaluated by orthopedics. The decision was made to do an open reduction internal fixation later that day. She was admitted to the floors. When an operating room became available she was brought down to the operating room and underwent an open reduction internal fixation of her left ankle without complication. Postoperatively she was placed in a trauma splint and transferred back to the floors. She was seen by physical therapy. She was able to be compliant with her nonweightbearing restrictions. She was then discharged to home. She will follow-up with orthopedics in 2 weeks. PG Care Time/CCT Total # of Minutes Spent Total Time Spent with Patient: Total time spent is greater than 50% in coordination of care (as documented) at patient's floor/unit and/or counseling patient: Discharge Plan Discharge Items Patient Disposition: Home - Self-Care Reason For Visit: ANKLE FRACTURE Discharge Diagnosis: same as above Condition on Discharge: Good Activity: Per Instructions section Weightbearing: Left non-weightbearing Non-emergency contact: Surgeon Call non-emergency contact if: your temperature is above 101.5, your wound has increased redness and your wound has increased drainage Follow-up/Referrals: Ave Pérez MD [Primary Care Provider] - Diet: Regular Addtl Attending Provider Instructions: General Orthopedic Discharge Instructions Activity: 1. Non-weightbearing left lower extremity until seen in the office Medications: 1. Narcotic You will likely be sent home from the hospital with a prescription for the narcotic pain medication. Take it as needed. Side effects most commonly include nausea and constipation 2. Toradol You will likely be sent home with this anti-inflammatory. It is a post-surgical ibuprofen (NSAID). Take it for 5 days as prescribed. If you have any side effects, such as stomach upset (not nausea), then stop immediately 3. Resume previous home medications unless otherwise instructed Dressing Care: If there is a soft dressing in place then leave the dressing intact for 5 days. On the 5th you may remove the dressing and leave the stitches open to air or cover them with band-aids. Keep the incision clean and dry f there is a hard splint then leave it in place until your follow-up visit in 2 weeks Showering: If you have a soft dressing you may shower right after the surgery but do not get the dressing wet. After the dressing is removed on the 5th day then you can get the stitches wet in the shower, but do not soak or scrub them. Let the soapy shower water run over the stitches and pat them dry. If you have a hard splint, cover it in a plastic bag and keep it dry. Do not remove it until the follow up appointment. Things To Watch For: 1. Drainage from the incision site that occurs more than one week after your surgery. 2. Increased redness at the incision site. 3. Fever above 102 degrees Fahrenheit. 4. Unusual chest pain or shortness of breath. 5. Call [facility] at with any of the above problems Follow-Up Visit: Follow-up with Dr. Melendrez's PA, Ronn Dowd, 2 weeks after your day of surgery. An appointment was probably scheduled when you signed-up for surgery in the office. If you have any questions call Pending Studies at Discharge: No Stand-Alone Forms: [facility] [employer], Smoking Cessation Medications and DC Order Prescriptions: New oxycodone-acetaminophen [Percocet] 5-325 mg tablet 1 tab PO Q6H PRN (Reason: pain) Qty: 20 RF: 0 Continued lisinopril 10 mg tablet 10 mg PO QAM RF: 0 escitalopram oxalate 10 mg tablet 10 mg PO QAM RF: 0 No Action (DME) Knee Scooter Misc See Rx Instructions .MEDSUPPLY Qty: 1 RF: 0 (DME) 3-in-1 Commode Misc See Rx Instructions .MEDSUPPLY Qty: 1 RF: 0 oxycodone-acetaminophen [Percocet] 5-325 mg tablet 1 tab PO Q6H PRN (Reason: pain) Qty: 20 RF: 0 Discharge Orders: Discharge Order (Routine); Ordered 06/25/20 Ordered By: Ronn Allen/Other Patient Handouts: Crutches Non Weight Bearing Dc, Acetaminophen Oxycodone tablets Admission Data Admit Date/Time: 06/25/20 06:34 Attending Provider: Ronn Melendrez Admit Provider: Ronn Melendrez Primary Care Provider: Ave Pérez Other Interventions: Discharge Summary Assessment (RN) Last Done: 06/25/20 17:00
== END 2020-06-25 18:36 | disposition home or self-care (01) ==
LOC: 3W 04:11 → ED 04:11 → 3W 08:40